=== PATIENT | male | born 1990 | race African-American/Black ===

== ENCOUNTER 2019-05-25 19:11 | Emergency (ER) | payer MEDICAID ==
[~2019-05-25] VITALS: Ht 177.8 cm; Wt 92.1 kg
[2019-05-25 19:55] VITALS: Ht 177.8 cm; Wt 92.1 kg
[2019-05-25 22:28] VITALS: BP 139/74
== END 2019-05-25 22:28 | disposition home or self-care (01) ==
LOC: ED 19:11
DX: S63.616A Unspecified sprain of right little finger, initial encounter (principal); X58.XXXA Exposure to other specified factors, initial encounter; Y93.89 Activity, other specified; Y92.89 Other specified places as the place of occurrence of the external cause; Y99.8 Other external cause status

== ENCOUNTER 2019-12-19 19:32 | Emergency (ER) | payer MEDICAID ==
[~2019-12-19] VITALS: Ht 177.8 cm; Wt 96.6 kg
[2019-12-19 19:45] VITALS: Ht 177.8 cm; Wt 96.6 kg
[2019-12-19 23:00] VITALS: BP 128/70
== END 2019-12-19 23:10 | disposition home or self-care (01) ==
LOC: ED 19:32
DX: I86.1 Scrotal varices (principal)
CPT/HCPCS: Q0092